=== PATIENT | male | born 1995 | race Caucasian/White ===

== ENCOUNTER → 2016-10-05 | Outpatient (CLI) | payer OTHER ==
[~2016-10-05] MED LIST: BUPR-79 PO
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
== END | disposition home or self-care (01) ==
LOC: C.NEUR 08:53
PROVIDERS: ATTEND Internal Medicine Geriatric Medicine
DX: G47.00 Insomnia, unspecified (principal); R41.840 Attention and concentration deficit

== ENCOUNTER 2023-01-29 17:38 | Inpatient (IN) ==
[2023-01-29 18:33] LABS: Basophils # (auto) 0.03 K/uL (0-0.2); Basophils % (auto) 0.3 %; Eosinophils # (auto) 0.02 K/uL (0-0.50); Eosinophils % (auto) 0.2 %; Hematocrit (blood only) 46.4 % (42.0-52.0); Hemoglobin 16.6 g/dl (14.0-18.0); Immature Granulocytes # (auto) 0.01 K/uL (0.01-0.20); Immature Granulocytes % (auto) 0.1 %; Lymphocytes # (auto) 1.46 K/uL (1.2-3.4); Lymphocytes % (auto) 16.7 %; Mean Corpuscular Hemoglobin 28.8 pg (25.0-34.0); Mean Corpuscular Hgb Conc 35.8 g/dL (32.0-36.0); Mean Corpuscular Volume 80.6 fL (80.0-100.0); Monocytes # (auto) 0.59 K/uL (0.11-0.59); Monocytes % (auto) 6.8 %; Neutrophils # (auto) 6.61 K/uL (1.40-6.50); Neutrophils % (auto) 75.9 %; Platelet Count 244 K/uL (130-400); RDW Coefficient of Variation 11.2 % (11.5-14.5); RDW Standard Deviation 32.7 fL (36.4-46.3); Red Blood Count 5.76 M/uL (4.70-6.10); White Blood Count 8.72 K/ul (4.8-10.8)
[2023-01-29 18:35] LABS: Appearance Urine Cloudy (Clear); Bacteria Urine Automated Negative (Negative); Bilirubin Urine Negative (Negative); Blood Urine Negative (Negative); Cast Urine Automated 0 /lpf (0-5); Color Urine Dark Yellow; Epithelial Cell Urine Auto 0-5 /lpf (0-5); Glucose Urine UA Negative (Negative); Ketones Urine Trace (Negative); Leukocyte Esterase Urine Negative (Negative); Nitrite Urine Negative (Negative); Protein Urine Negative (Negative); RBC Urine Automated 0-4 /hpf (0-4); Specific Gravity Urine 1.024 (1.000-1.030); Urobilinogen Urine Negative (Negative)
[2023-01-29 18:52] LABS: Albumin Globulin Ratio 1.6 (0.9-2); Albumin Level 4.8 gm/dl (3.4-5.0); BUN Creatinine Ratio 13.4 (10-20); Bilirubin,Total 0.8 mg/dl (0.2-1.0); Calcium 9.4 mg/dl (8.6-10.3); Creatinine Clr Calc Pharmacy 100.2 ml/min; Est GFR (African American) 97.1 ml/min; Est GFR (Non-African American) 83.8 ml/min; Potassium 3.8 mmol/L (3.5-5.1); Total Protein 7.8 gm/dl (6.0-8.3)
[2023-01-29 18:53] LABS: Acetaminophen < 3 ug/ml (10-30); Salicylate < 3.0 mg/dl (3.0-30)
[2023-01-29 18:58] LABS: Amphetamines+Metham, Urine Pos (Neg); Barbiturates, Urine Neg (Neg); Benzodiazepine, Urine Neg (Neg); Cocaine, Urine Neg (Neg); MDMA (Ecstacy), Urine Pos (Neg); Methadone, Urine Neg (Neg); Opiate, Urine Neg (Neg); Phencyclidine, Urine Neg (Neg)
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
[2023-01-29] MEDS ORDERED: MAGNESIUM HYDROXIDE SUSP 30 ML UDC PO PRN (20:30)
[2023-01-29] MEDS ORDERED: ALUMINUM/MAGNESIUM SUSP 30 ML UDC PO PRN (20:30)
[2023-01-29] MEDS ORDERED: BISMUTH SUBSALICYLATE LIQD 236 ML PO PRN (20:30)
[2023-01-29] MEDS ORDERED: ACETAMINOPHEN 325 MG TAB PO PRN (20:30)
[2023-01-29] MEDS ORDERED: hydrOXYzine HCl 25 MG TAB PO PRN ×2 (20:30)
[2023-01-29] MEDS ORDERED: SODIUM CHLORIDE 0.65% NA SOLN 45 ML (OCEAN) PRN (20:30)
[2023-01-29] MEDS: risperiDONE 1 MG TABLET PO SCH (20:35)
[2023-01-29] MEDS: NICOTINE POLACRILEX 2 MG GUM MT PRN (21:10)
[2023-01-29] MEDS: risperiDONE 0.5 MG TABLET PO PRN (21:21)
--- NOTE | 2023-01-30 07:12 | Electrocardiogram Report ---
Test Reason : Blood Pressure : / mmHG Vent. Rate : 114 BPM Atrial Rate : 114 BPM P-R Int : 126 ms QRS Dur : 094 ms QT Int : 332 ms P-R-T Axes : 068 078 037 degrees QTc Int : 457 ms Sinus tachycardia Abnormal ECG No previous ECGs available Confirmed by Medhat Slaughter ([id number]) on 01/30/2023 7:11:46 AM Referred By: REFERRED SELF Confirmed By:Skip Slaughter
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
[2023-01-30] MEDS: NICOTINE 14 MG/24 HR PATCH TD SCH (10:27)
[2023-01-30] MEDS: risperiDONE 1 MG TABLET PO SCH ×2 (11:52→20:09)
[2023-01-30] MEDS ORDERED: LORazepam 1 MG TAB PO PRN (12:43)
[2023-01-30] MEDS: risperiDONE 0.5 MG TABLET PO PRN (18:46)
[2023-01-31] MEDS: FOLIC ACID 1 MG TAB PO SCH (08:27)
[2023-01-31] MEDS: THIAMINE HCL 100 MG TAB PO SCH (08:27)
[2023-01-31] MEDS: risperiDONE 1 MG TABLET PO SCH ×2 (08:27→20:35)
[2023-01-31] MEDS: NICOTINE 14 MG/24 HR PATCH TD SCH (08:31)
--- NOTE | 2023-01-31 09:51 | Psychiatric Progress Note ---
Date of Service January 31, 2023 Impression / Recommendations Impression 27 year old man with a history of anxiety, depression who was admitted for psychosis with hallucinations, paranoia and SI with plan to hang himself in context of breakup, methamphetamine use, homelessness and recent job loss with increasing financial challenges. Diagnostically consistent with unspecified psychosis with differential including substance-induced or withdrawal (UDS and history consistent with methamphetamine and MDMA use) versus MDD with psychotic features versus primary psychotic disorder. He is deemed in need of psychiatric hospitalization for diagnostic clarification, safety and stabilization, medication management and development of further coping skills. MNPR due to recent psychosis and paranoia 01/31/2023: Psychosis improving significantly suggestive of substance-induced process. Motivational interviewing, not interested in outpatient or residential substance use treatment. Depression also improving rapidly, future-oriented and speaking of interests including hiking and fishing and no SI. Tolerating risperidone well with good effect so far. Focused on discharge, will need to have some type of provider follow-up, will work with social work to see if he qualifies for medical assistance as no current insurance coverage. Needs family/support meeting. 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 Continue risperidone. Disco ntinue AWSS. 01/30/2023: The patient was admitted to the [facility] ([facility]) on q15 min checks (behavioral with suicide precautions) for safety. The patient will participate in group, recreational, and milieu therapies and will be offered additional individual and family sessions as clinically appropriate. * Start risperidone 1mg BID po * Fasting lipid panel and glucose if he tolerates risperidone * AWSS with thiamine and folic acid Inventory Assets Strengths: supportive relationships, willing to get treatment Needs: safety and stabilization, medication adjustment, additional coping skills, increased outpatient services Suicide Risk Level Suicide Risk Level: Moderate (q15 min suicide checks) (depression and psychosis with SI with plan prior to admission but psychosis and depression improving, denies SI, feels safe in the hospital, able to safety contract and agrees to let nursing/staff know should they develop plan, intent or feel unable to remain safe. ) Risk Factors Assessment Male: Yes : Yes Do You Have Access To A Gun?: No Health Problems: No Mental Health Diagnoses: Yes Substance Use Disorders: Yes Previous Attempt: Yes Family History of Suicide: No Previous Psychiatric Hospitalization: Yes Protective Factors Assessment Employed: No Supportive Family: Yes Interval History Identifying Information KEELY LENZ is a 27-year-old M who is currently homeless, has a history of substance use, depression, anxiety and was admitted on 01/29/23 20:30 on a 201 voluntary commitment for psychosis and SI. Chief Complaint "Ok". Review of Systems Sleep Information Total Hours of Sleep: 7 Meal Information Percent Meal Consumed - Breakfast: 100 Percent Meal Consumed - Lunch: 100 Percent Meal Consumed - Dinner: 100 Nutrition Comment: Subjective Subjective Patient was seen & assessed and interval progress reviewed with treatment team nursing and social work. Last evening became tearful after hearing voices of people "screaming and crying" and got prn risperidone. His mother visited yesterday. Talked with his ex-girlfriend/girlfriend on the phone. Today reports his mood is "ok" and focused on desire to discharge by Wednesday for a job interview. Feels his hallucinations are "a lot better" since starting the risperidone and denies any side effects from risperidone except that he developed some hand numbness after waking from sleeping on it yesterday but it improved within a few minutes and no other episodes since. Thinks his hallucinations also worsen with dehydration so he's been drinking water and thinks this also helps. Denies SI which he attributes to "having somewhat of a plan" in terms of talking with his girlfriend who is agreeable to him returning to their apartment and if it doesn't work out he will then move in with his mother, has a job interview lined up for Wednesday and is looking forward to hiking and fishing again. Feels he is not in need of further substance use treatment as "it's a relief my girlfriend now knows" and reports he's been successful in the past "once I get through the withdrawal, that's the worst p art". Physical Exam Psychiatric Orientation: alert and oriented x 3 Apperance: appropriately dressed and appropriately groomed Eye Contact: good eye contact Motor Behavior: no abnormal motor movements Speech: normal rate/rhythm/volume of speech Affect: + constricted affect Mood: + anxious mood Thought Process: goal directed thought process Thought Content: reality based without delusions; not paranoid Suicidal Thoughts: denies suicidal thoughts, denies suicidal plan and denies suicidal intent Homicidal Thoughts: denies homicidal thoughts Hallucinations: + auditory hallucinations (but lessening, none so far today); no visual hallucinations and no tactile hallucinations Cognition: recent memory grossly intact, remote memory grossly intact, attention grossly intact and language grossly intact Estimated Intelligence: consistent with education level Insight: + fair insight Judgment: + limited judgement Vital Signs (Past 24 Hours) Last Vital Signs Temp 36.4 C 01/31/23 06:00 Pulse 63 01/31/23 06:51 Resp 16 01/31/23 06:00 BP 95/59 L 01/31/23 06:51 Pulse Ox 100 01/31/23 06:00 O2 Del Method Room Air 01/31/23 06:00 Results & Data ([facility]) Current Inpatient Medications Current Inpatient Medications: Current Inpatient Medications Acetaminophen (Acetaminophen 325 Mg Tab) 650 mg PO Q4H PRN PRN Reason: Headache or Minor Fever Stop: 02/28/23 20:29 Al Hydrox/Mg Hydrox/Simethicone (Aluminum/Magnesium Susp 30 Ml Udc) 30 ml PO Q4H PRN PRN Reason: GI Upset Stop: 02/28/23 20:29 Bismuth Subsalicylate (Bismuth Subsalicylate Liqd 236 Ml) 15 ml PO PRN PRN PRN Reason: Loose Stool Stop: 02/28/23 20:29 Folic Acid (Folic Acid 1 Mg Tab) 1 mg PO QAM NOEL Stop: 03/02/23 08:59 Last Admin: 01/31/23 08:27 Dose: 1 mg Hydroxyzine HCl (Hydroxyzine Hcl 25 Mg Tab) 50 mg PO HSZ PRN PRN Reason: Insomnia Stop: 02/28/23 20:29 Last Admin: 01/29/23 21:24 Dose: 50 mg Hydroxyzine HCl (Hydroxyzine Hcl 25 Mg Tab) 25 mg PO Q4H PRN PRN Reason: Anxiety Stop: 02/28/23 20:29 Last Admin: 01/30/23 20:13 Dose: 25 mg Lorazepam (Lorazepam 1 Mg Tab) 1 mg PO ONE PRN; Protocol PRN Reason: EtoH Withdrawal AWSS 6,7,8,9,10 Magnesium Hydroxide (Magnesium Hydroxide Susp 30 Ml Udc) 30 ml PO DAILY PRN PRN Reason: Constipation Stop: 02/28/23 20:29 Miscellaneous (Remove Nicoderm Patch) 1 each N/A DAILY@[id number] [facility] Stop: 03/01/23 08:58 Last Admin: 01/31/23 08:32 Dose: Not Given Nicotine (Nicotine 14 Mg/24 Hr Patch) 14 mg TD QAM [facility] Stop: 03/01/23 08:59 Last Admin: 01/31/23 08:31 Dose: 14 mg Nicotine Polacrilex (Nicotine Polacrilex 2 Mg Gum) 2 piece MT PRN PRN PRN Reason: Nicotine Withdrawal Stop: 02/28/23 20:29 Last Admin: 01/29/23 21:10 Dose: 2 piece Risperidone (Risperidone 1 Mg Tablet) 1 mg PO BID [facility] Stop: 02/28/23 20:59 Last Admin: 01/31/23 08:27 Dose: 1 mg Risperidone (Risperidone 0.5 Mg Tablet) 0.5 mg PO QID PRN PRN Reason: Agitation/psychosis Stop: 02/28/23 20:30 Last Admin: 01/30/23 18:46 Dose: 0.5 mg Sodium Chloride (Sodium Chloride 0.65% Na Soln 45 Ml ([place])) 1 - 2 sprays NA PRN PRN PRN Reason: Nasal Dryness/Congestion Stop: 02/28/23 20:29 Thiamine HCl (Thiamine Hcl 100 Mg Tab) 100 mg PO QAM [facility] Stop: 03/02/23 08:59 Last Admin: 01/31/23 08:27 Dose: 100 mg Post Discharge Appointments Contact Information Discharge Discharge Address: [address] [place] [address] LETHA Santana [id number]
[2023-01-31] MEDS: risperiDONE 0.5 MG TABLET PO PRN (16:00)
[2023-02-01 07:43] LABS: Chol HDL Ratio 4.6 (0-5)
[2023-02-01] MEDS: NICOTINE 14 MG/24 HR PATCH TD SCH (08:48)
[2023-02-01] MEDS: risperiDONE 1 MG TABLET PO SCH (08:48)
[2023-02-01] MEDS: THIAMINE HCL 100 MG TAB PO SCH (08:48)
[2023-02-01] MEDS: FOLIC ACID 1 MG TAB PO SCH (08:48)
--- NOTE | 2023-02-01 10:55 | Discharge Summary ---
Date of Service February 01, 2023 History of Present Illness Bill presents for psychiatric admission for worsening depression, hallucinations and SI with plan of hanging himself in the context of multiple psychosocial stressors including recent breakup with girlfriend and now homeless as well as ongoing methamphetamine use. He's been experiencing a worsening of auditory hallucinations of chain saws for the last few weeks as well as tactile hallucinations of sometimes thinking people are touching him or that vibrations were coming from the downstairs neighbor's apartment. He has also been hearing sounds of chain saws and yesterday felt like the police were coming to get him. He continues to have SI but struggles to further discuss his psychiatric symptoms noting "I don't know what's going on anymore". He's been snorting methamphetamine and agrees that it was likely "laced" with MDMA recently. Has been drinking alcohol but feels this is not problematic like it was in the past but consuming two 12 packs of beer on average every 4-5 days. He is not currently prescribed any psychiatric medications and cannot recall the past time he took any psychiatric medications. Psychiatric ROS limited due to his difficulty participating in prolonged interview. Further recent history per ED CM notes from 01/29/2023: "Bill states that he is suicidal with a plan to hang himself on a hiking trail in [place]. He states that he is currently using methamphetamines and is experiencing extreme paranoia. He endorses auditory hallucinations and states that he hears them "even when sober". He denies command hallucinations, however. He snorted meth this morning and has been using since 2020. He was fired from his job on November 19 related to his substance use and has been living off his senior care savings since then. [...] Today, he told his girlfriend/his girlfriend found out that he is using meth and she subsequently told him that he cannot live with her anymore. He is essentially homeless at this point and despite having family in the area, he does not wish to bother them with his problems. He denies access to firearms." "Pt sad and tearful throughout. Pt maintained his gaze at the floor and did not make eye contact with this CM or his visitors. As stated in previous note, he endorses SI with a plan to hang himself as well as AH and paranoia. Pt also states he has tactile hallucinations of vibrations that accompany hearing a chainsaw at night. Pt states his paranoia is r/t feeling like people are out to get him, making fun of him, and that he will be arrested. Pt is not able to say why he might be arrested. He states his hallucinations and paranoia started 2 years ago and that he started using amphetamines approximately two years ago but denies that they are related. Pt does state that he is homeless at this time but both his mother states he is welcome to return home. Pt also states that he nearly cut his wrists in a suicide attempt a few days ago but stopped himself because he does not like the idea of cutting his skin. [...]" Physical Exam Vital Signs (Past 24 Hours) Last Vital Signs Temp 36.9 C 02/01/23 06:00 Pulse 87 02/01/23 06:00 Resp 16 02/01/23 06:00 BP 100/68 02/01/23 06:44 Pulse Ox 100 02/01/23 06:00 O2 Del Method Room Air 02/01/23 06:00 See admission H&P and DOD summary. Principal Diagnosis Substance-induced psychosis Psychiatric Data See daily stay summary. In short, patient was engaged with the social/therapeutic milieu of the unit, safety was maintained and the patient was cooperative with care. His psychosis and hallucinations improved significantly over a few days and while it was recommended he continue with a few more days of inpatient treatment he requested discharge and did not meet 302 criteria. Medication changes included initiation of risperidone 1mg BID po as well as 0.5mg daily prn for psychosis and they tolerated this well. Baseline labs of fasting glucose, fasting lipid profile, and weight were preformed and normal. Recommend repeat weight in one month. Recommend repeat fasting glucose, HbA1c and fasting lipid profile every 12 weeks and then annually if he remains on risperidone. If symptoms arise recommend checking BP, EKG, prolactin level as clinically indicated or relevant. Given suspected substance-induced psychosis he may be able to taper off of risperidone in the next 1-2 months if psychosis fully resolves without any further emergence of symptoms in the future. A family session was held and safety plan was completed prior to discharge. Motivational interviewing was done regarding his substance use. He actively and insightfully participated in safety planning and in discussions about ways to seek support and recognizing warning signs and utilizing coping skills. Reviewed importance of seeking emergency care should SI reoccur, intensify, worsen or should they feel unsafe in the future which they agree to do. On the day of discharge he stated his mood was "good and ready to go" and remained future-oriented including spending time with his girlfriend, seeing his mom, attending a job interview tomorrow, hiking and fishing and engaging in aftercare appointments for primary care and working with his ed case manager to establish outpatient psychiatric and therapy follow-up once he gets approved for medical assistance vs gets insurance with a new job. Day of Discharge Assessment Today the patient voices readiness for discharge. They note improvement in mood and anxiety. They deny thoughts of harm to self or others. Thoughts are organized and they are clinically improved from admission. There is no evidence of psychosis. They improved in the hospital with support and medication adjustments. They agree to take medications as prescribed and keep follow-up appointments. At the time of the discharge they are deemed to be stable and appropriate for outpatient level of care. They are not deemed to be at imminent risk of harm to self or others. They are aware of emergency and crisis services. Knows to call 911 or go to nearest emergency care center if in a crisis which cannot be handled as an outpatient. Transition of Care Transition Of Care Record: was reviewed with the patient Advance Directives Advance Directives Information Provided: Yes Advance Directives: No Mental Health Advance Directive: No Advance Directives on File: No Living Will: No Power of Manager Latin: No Advance Directives Reason:: Declines as Mental Health Visit. Suicide Risk Level Suicide Risk Level Comments: Acute risk is low given improvement in mood and denial of SI, lack of access to lethal means, plan to avoid substance use, improvement in sleep, hopefulness and improvement in psychosis. Chronic risk is moderate given multiple non- modifiable risk factors: periods of impulsivity, prior attempt, emotional reactivity, prior psychiatric hospitalizations, limited social support, but also with protective factors including: has interview for possible new job, sense of responsibility to family and social supports, positive coping skills, positive problem solving, capacity to establish therapeutic alliance, willingness to engage with treatment and capacity for self-observation. Counseled on ways to reduce acute and chronic risk including avoiding substance use, engaging with outpatient providers/establishing medical assistance, using safety plan if needed, utilizing supports, taking medication, and using coping skills. Modifiable risk factors of SI and psychosis were addressed during hospitalization through development of new coping skills, family meeting, safety planning, and medication adjustments. Risk Factors Assessment Male: Yes : Yes Do You Have Access To A Gun?: No Health Problems: No Mental Health Diagnoses: Yes Substance Use Disorders: Yes Previous Attempt: Yes Family History of Suicide: No Previous Psychiatric Hospitalization: Yes Hopelessness: No Protective Factors Assessment Employed: No Stable Relationships: Yes Supportive Family: Yes Discharge Data Lab Results 01/29/23 01/29/23 01/29/23 18:01 18:01 18:06 WBC 8.72 RBC 5.76 Hgb 16.6 Hct 46.4 MCV 80.6 MCH 28.8 MCHC 35.8 RDW Std Deviation 32.7 L RDW Coeff of Jeanie 11.2 L Plt Count 244 MPV 10.0 Immature Gran % (Auto) 0.1 Neut % (Auto) 75.9 Lymph % (Auto) 16.7 Laporte % (Auto) 6.8 Eos % (Auto) 0.2 Baso % (Auto) 0.3 Neut # (Auto) 6.61 H Lymph # (Auto) 1.46 Laporte # (Auto) 0.59 Eos # (Auto) 0.02 Baso # (Auto) 0.03 Immature Gran # (Auto) 0.01 Sodium Potassium Chloride Carbon Dioxide Anion Gap BUN Creatinine Est Cr Clr Drug Dosing Est GFR ( Amer) Est GFR (Non-Af Amer) BUN/Creatinine Ratio Glucose Fasting Glucose Calcium Total Bilirubin AST ALT Alkaline Phosphatase Total Protein Albumin Globulin Albumin/Globulin Ratio Triglycerides Cholesterol LDL Cholesterol, Calc VLDL Cholesterol, Calc HDL Cholesterol Cholesterol/HDL Ratio TSH Urine Color Dark Yellow Urine Appearance Cloudy A Urine pH 7.0 Ur Specific Weston 1.024 Urine Protein Negative Urine Glucose (UA) Negative Urine Ketones Trace H Urine Blood Negative Urine Nitrite Negative Urine Bilirubin Negative Urine Urobilinogen Negative Ur Leukocyte Esterase Negative Urine WBC (Auto) 1-5 Urine RBC (Auto) 0-4 U Hyaline Cast (Auto) 0 U Epithel Cells (Auto) 0-5 Urine Bacteria (Auto) Negative Nasal Screen MRSA (PCR) Salicylates Urine Opiates Screen Neg Ur Methadone, Qual Neg Acetaminophen Urine Barbiturates Neg Ur Phencyclidine (PCP) Neg U Amphetamin/Meth Scrn Pos H MDMA (Ecstasy) Screen Pos H U Benzodiazepines Scrn Neg Ur Cocaine Metabolite Neg U Marijuana (THC) Screen Neg Ethyl Alcohol mg/dL SARS-CoV-2, RNA, NAAT 01/29/23 01/29/23 01/29/23 18:06 18:06 18:06 WBC RBC Hgb Hct MCV MCH MCHC RDW Std Deviation RDW Coeff of Jeanie Plt Count MPV Immature Gran % (Auto) Neut % (Auto) Lymph % (Auto) Laporte % (Auto) Eos % (Auto) Baso % (Auto) Neut # (Auto) Lymph # (Auto) [place] # (Auto) Eos # (Auto) Baso # (Auto) Immature Gran # (Auto) Sodium 137 Potassium 3.8 Chloride 101 Carbon Dioxide 28 Anion Gap 8 BUN 16 Creatinine 1.19 Est Cr Clr Drug Dosing 100.2 Est GFR ( Amer) 97.1 Est GFR (Non-Af Amer) 83.8 BUN/Creatinine Ratio 13.4 Glucose 100 H Fasting Glucose Calcium 9.4 Total Bilirubin 0.8 AST 18 ALT 16 Alkaline Phosphatase 57 Total Protein 7.8 Albumin 4.8 Globulin 3.0 Albumin/Globulin Ratio 1.6 Triglycerides Cholesterol LDL Cholesterol, Calc VLDL Cholesterol, Calc HDL Cholesterol Cholesterol/HDL Ratio TSH 1.108 Urine Color Urine Appearance Urine pH Ur Specific Weston Urine Protein Urine Glucose (UA) Urine Ketones Urine Blood Urine Nitrite Urine Bilirubin Urine Urobilinogen Ur Leukocyte Esterase Urine WBC (Auto) Urine RBC (Auto) U Hyaline Cast (Auto) U Epithel Cells (Auto) Urine Bacteria (Auto) Nasal Screen MRSA (PCR) Salicylates < 3.0 L Urine Opiates Screen Ur Methadone, Qual Acetaminophen < 3 L Urine Barbiturates Ur Phencyclidine (PCP) U Amphetamin/Meth Scrn MDMA (Ecstasy) Screen U Benzodiazepines Scrn Ur Cocaine Metabolite U Marijuana (THC) Screen Ethyl Alcohol mg/dL SARS-CoV-2, RNA, NAAT 01/29/23 01/29/23 01/29/23 18:06 19:10 Unknown WBC RBC Hgb Hct MCV MCH MCHC RDW Std Deviation RDW Coeff of Jeanie Plt Count MPV Immature Gran % (Auto) Neut % (Auto) Lymph % (Auto) Laporte % (Auto) Eos % (Auto) Baso % (Auto) Neut # (Auto) Lymph # (Auto) [place] # (Auto) Eos # (Auto) Baso # (Auto) Immature Gran # (Auto) Sodium Potassium Chloride Carbon Dioxide Anion Gap BUN Creatinine Est Cr Clr Drug Dosing Est GFR ( Amer) Est GFR (Non-Af Amer) BUN/Creatinine Ratio Glucose Fasting Glucose Calcium Total Bilirubin AST ALT Alkaline Phosphatase Total Protein Albumin Globulin Albumin/Globulin Ratio Triglycerides Cholesterol LDL Cholesterol, Calc VLDL Cholesterol, Calc HDL Cholesterol Cholesterol/HDL Ratio TSH Urine Color Urine Appearance Urine pH Ur Specific Weston Urine Protein Urine Glucose (UA) Urine Ketones Urine Blood Urine Nitrite Urine Bilirubin Urine Urobilinogen Ur Leukocyte Esterase Urine WBC (Auto) Urine RBC (Auto) U Hyaline Cast (Auto) U Epithel Cells (Auto) Urine Bacteria (Auto) Nasal Screen MRSA (PCR) Negative Salicylates Urine Opiates Screen Ur Methadone, Qual Acetaminophen Urine Barbiturates Ur Phencyclidine (PCP) U Amphetamin/Meth Scrn MDMA (Ecstasy) Screen U Benzodiazepines Scrn Ur Cocaine Metabolite U Marijuana (THC) Screen Ethyl Alcohol mg/dL < 10.0 SARS-CoV-2, RNA, NAAT NEGATIVE 02/01/23 07:14 WBC RBC Hgb Hct MCV MCH MCHC RDW Std Deviation RDW Coeff of Jeanie Plt Count MPV Immature Gran % (Auto) Neut % (Auto) Lymph % (Auto) Lap[place] % (Auto) Eos % (Auto) Baso % (Auto) Neut # (Auto) Lymph # (Auto) [place] # (Auto) Eos # (Auto) Baso # (Auto) Immature Gran # (Auto) Sodium Potassium Chloride Carbon Dioxide Anion Gap BUN Creatinine Est Cr Clr Drug Dosing Est GFR ( Amer) Est GFR (Non-Af Amer) BUN/Creatinine Ratio Glucose Fasting Glucose 92 Calcium Total Bilirubin AST ALT Alkaline Phosphatase Total Protein Albumin Globulin Albumin/Globulin Ratio Triglycerides 97 Cholesterol 144 LDL Cholesterol, Calc 94 VLDL Cholesterol, Calc 19 HDL Cholesterol 31 Cholesterol/HDL Ratio 4.6 TSH Urine Color Urine Appearance Urine pH Ur Specific Weston Urine Protein Urine Glucose (UA) Urine Ketones Urine Blood Urine Nitrite Urine Bilirubin Urine Urobilinogen Ur Leukocyte Esterase Urine WBC (Auto) Urine RBC (Auto) U Hyaline Cast (Auto) U Epithel Cells (Auto) Urine Bacteria (Auto) Nasal Screen MRSA (PCR) Salicylates Urine Opiates Screen Ur Methadone, Qual Acetaminophen Urine Barbiturates Ur Phencyclidine (PCP) U Amphetamin/Meth Scrn MDMA (Ecstasy) Screen U Benzodiazepines Scrn Ur Cocaine Metabolite U Marijuana (THC) Screen Ethyl Alcohol mg/dL SARS-CoV-2, RNA, NAAT Hospital Course (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 Continue risperidone. Discontinue AWSS. 01/30/2023: The patient was admitted to the [facility] ([facility]) on q15 min checks (behavioral with suicide precautions) for safety. The patient will participate in group, recreational, and milieu therapies and will be offered additional individual and family sessions as clinically appropriate. * Start risperidone 1mg BID po * Fasting lipid panel and glucose if he tolerates risperidone * AWSS with thiamine and folic acid Post Discharge Appointments Primary Care Physician Name Of Family Doctor/PCP: Felicita Zarate PA-C Contact Information Discharge Discharge Address: [address] [place] [address] LETHA Santana [id number] Discharge Plan Discharge Items Patient Disposition: Home - Self-Care Reason For Visit: UNSPECIFIED PSYCHOSIS Discharge Diagnosis: Substance-induced psychosis Activity: Resume your previous activity Non-emergency contact: Primary Care Provider and Crozer Call non-emergency contact if: you have any medication questions and your symptoms worsen Follow-up/Referrals: PCP,KALYN [Primary Care Provider] - Diet: Regular Addtl Attending Provider Instructions: Optional mobile apps: -Suicide safety plan -Virtual Hope Box SPECIAL CARE INSTRUCTIONS: 1. Follow through with your scheduled aftercare appointments. If unable to keep an appointment, please call to reschedule. 2. Take your medication only as prescribed. Medication should not be changed or stopped without the approval of your doctor. In the event of worsening symptoms or concerns about side effects, contact your doctor immediately. 3. Utilize new healthy coping skills, anger management skills, and stress management skills learned during your hospitalization. Journal feelings and process them with a support person. Identify stressors or situations that may result in relapse, deterioration or inappropriate behaviors and develop a plan to deal with those issues. 4. If your coping skills are ineffective and you are in crisis, contact your outpatient providers for direction. If unable to reach your providers, please call the [facility] CRISIS LINE AT , go to the [facility] walk-in center at [address] [place] [address], [address], [place], or go to the closest Emergency Room. 5. Avoid alcohol and un-prescribed drugs. 6. You have been provided with the Mental Health Advance Directives Pamphlet for your review. 7. Your condition is stable for discharge to outpatient level of care, but recovery is an ongoing process. Ifthoughts to harm yourself or others return, follow the safety plan developed during your stay. Planning for a safe return home includes securing weapons. Our treatment team recommends weaponsbe removed from the home until your outpatient provider reassesses your progress. In rare cases where the items themselvescannot be removed, guns and ammunitionshould be secured separatelyand keys stored by a reliable personoutside of the home. If you were admitted on an involuntary commitment, the police or other legal authorities may be involved in this process. AFTERCARE APPOINTMENTS: * Please call your insurance company prior to your scheduled appointment to confirm your aftercare providers are covered. Take your insurance information to your appointments. WHO TO CALL AND WHEN: Medical Emergencies: For questions or emergencies related to your hospital stay, please contact the Inpatient Behavioral Health Unit at [phone]. A revenue audit clerk is on-call 18/01 for the Behavioral Health Unit for emergencies At any time you feel your situation is an emergency, you may also call 911 immediately. National Crisis Line: 989 Pending Studies at Discharge: No Stand-Alone Forms: [facility], Smoking Cessation Medications and DC Order Prescriptions: New risperidone 1 mg Tablet 1 mg PO BID 30 Days Qty: 60 0RF risperidone 0.5 mg Tablet 0.5 mg PO DAILY PRN (Reason: hallucinations/psychosis) 30 Days Qty: 30 0RF Discharge Orders: Discharge Order (Routine); Ordered 02/01/23 Ordered By: Yamilka Mcfarlane Admission Data Admit Date/Time: 01/29/23 20:30 Attending Provider: Yamilka Mcfarlane Admit Provider: Yamilka Mcfarlane Primary Care Provider: PCP,NO Other Interventions: Discharge Summary Assessment (RN) Last Done: 02/01/23 11:24 PSY Interdisciplinary Discharge Planning Last Done: 02/01/23 13:11 Coding Level of Care Code 67040 D/C day mgmt > 30 min Diagnoses Psychotic disorder due to psychoactive substance F19.959 Psychotic disorder F29 Depression with suicidal ideation F32.A; R45.851 Methamphetamine use disorder, severe F15.20 Auditory hallucinations R44.0 Time Spent (min) 35
[2023-02-01] MEDS: NICOTINE POLACRILEX 2 MG GUM MT PRN (13:34)
== END 2023-02-01 13:56 | disposition home or self-care (01) | DRG 885 ==
LOC: ED 17:38 → 3S 20:30